=== PATIENT | male | born 1975 | race African-American/Black ===

== ENCOUNTER 2019-10-20 09:57 | Emergency (ER) | payer SELFPAY ==
[~2019-10-20] VITALS: Ht 167.6 cm; Wt 68.0 kg
[2019-10-20] MEDS ORDERED: fentaNYL PF VIAL 100 MCG/2 ML VIAL IV ONE (10:30)
[2019-10-20] MEDS ORDERED: IV NORMAL SALINE 1000ML BAG 1,000 ML IV ONE (10:30)
[2019-10-20] MEDS ORDERED: ONDANSETRON PF 4 MG/2 ML VIAL. IV ONE (10:30)
[2019-10-20] MEDS ORDERED: KETAMINE HCL IN NACL, ISO-OSM 50 MG/5 ML SYRINGE IV ONE (10:30)
--- NOTE | 2019-10-20 10:34 | PHYS DOC ---
General Adult EDM: Chief Complaint: SHOULDER INJURY HPI: HPI: Patient is a 43-year-old otherwise healthy male who presents secondary to a shoulder injury. He states he fell last night landed on his left shoulder and since that time is been unable to move it. He states he has not had any previous shoulder injuries and no dislocations. He denies any other injuries. He states he still able to move and feel his fingers. [] Review of Systems: Review of Systems: Constitutional: Denies fever or chills. [] Eyes: Denies change in visual acuity. [] HENT: Denies nasal congestion or sore throat. [] Respiratory: Denies cough or shortness of breath. [] Cardiovascular: Denies chest pain or edema. [] GI: Denies abdominal pain, nausea, vomiting, bloody stools or diarrhea. [] : Denies dysuria. [] Musculoskeletal: Per HPI [] Integument: Denies rash. [] Neurologic: Denies headache, focal weakness or sensory changes. [] Endocrine: Denies polyuria or polydipsia. [] Lymphatic: Denies swollen glands. [] Psychiatric: Denies depression or anxiety. [] Heart Score: Risk Factors: Risk Factors: DM, Current or recent (<one month) smoker, HTN, HLP, family history of CAD, obesity. Risk Scores: Score 0 - 3: 2.5% MACE over next 6 weeks - Discharge Home Score 4 - 6: 20.3% MACE over next 6 weeks - Admit for Clinical Observation Score 7 - 10: 72.7% MACE over next 6 weeks - Early Invasive Strategies Current Medications: Current Medications Medications (Trade) Dose Ordered Sig/[facility] Start Time Stop Time Status Last Admin Dose Admin Fentanyl Citrate (Fentanyl 2ml Vial) 50 mcg 1X ONCE 10/20/19 10:30 10/20/19 10:31 Ketamine HCl (Ketamine) 66 mg 1X ONCE 10/20/19 10:30 10/20/19 10:31 UNV Ondansetron HCl (Zofran) 4 mg 1X ONCE 10/20/19 10:30 10/20/19 10:31 Sodium Chloride 1,000 ml @ 1,000 mls/hr 1X ONCE 10/20/19 10:30 10/20/19 11:29 Allergies: Allergies: Allergies Coded Allergies Type Severity Reaction Last Updated Verified No Known Drug Allergies 10/20/19 No Physical Exam: PE: Constitutional: Well developed, well nourished, moderate distress, non-toxic appearance. [] HENT: Normocephalic, atraumatic, bilateral external ears normal, oropharynx moist, no oral exudates, nose normal. [] Eyes: PERRLA, EOMI, conjunctiva normal, no discharge. [] Neck: Normal range of motion, no tenderness, supple, no stridor. [] Cardiovascular:Heart rate regular rhythm, no murmur [] Lungs & Thorax: Bilateral breath sounds clear to auscultation [] Abdomen: Bowel sounds normal, soft, no tenderness, no masses, no pulsatile m asses. [] Skin: Warm, dry, no erythema, no rash. [] Back: No tenderness, no CVA tenderness. [] Extremities: Obvious left anterior shoulder dislocation good distal sensation and pulses. [] Neurologic: Alert and oriented X 3, normal motor function, normal sensory function, no focal deficits noted. [] Psychologic: Affect normal, judgement normal, mood normal. [] EKG: EKG: [] Radiology/Procedures: Radiology/Procedures: [STATUS: PRE ERORD. PHYSICIAN: NAGA CASTELLANO DO REASON: left shoulder dislocation PROCEDURE: SHOULDER 2+V LEFT INDICATION: Shoulder pain COMPARISON: None. IMPRESSION: Left shoulder: 2 views obtained. Anterior inferior left shoulder dislocation is identified. Calcified lymph nodes in the left pulmonary hilum which could be secondary to sequela of old granulomatous disease.] Impression: REASON: post reduction PROCEDURE: SHOULDER LEFT 1V INDICATION: Postreduction COMPARISON: Earlier same day IMPRESSION: Left shoulder: Single view obtained. Interval improvement in alignment of previously identified left shoulder dislocation status post reduction. Limited evaluation for fracture secondary to only one view obtained. Course & Med Decision Making: Course & Med Decision Making Pertinent Labs and Imaging studies reviewed. (See chart for details) [Procedure: Left shoulder reduction After adequate procedural sedation gentle axial traction was applied to the left shoulder with a easy reduction after reduction full range of motion was obtained neurovascular he remained intact. Patient tolerated procedure well] Dragon Disclaimer: Dragon Disclaimer: This electronic medical record was generated, in whole or in part, using a voice recognition dictation system. Departure Departure Impression: Primary Impression: Dislocation of left shoulder joint Qualified Codes: S43.005A - Unspecified dislocation of left shoulder joint, initial encounter Disposition: HOME, SELF-CARE Condition: STABLE Referrals: GARDENIA CONWAY MD Follow-up with Dr. Rooney in the next 1 week. Patient Instructions: Shoulder Dislocation, Shoulder Fracture (Proximal Humerus or Glenoid)-SportsMed Scripts Hydrocodone/Apap 5-325 (NORCO 5-325 TABLET) 1 Each Tablet 1 TAB PO PRN Q6HRS PRN for PAIN, #12 TAB 0 Refills Prov: NAGA CASTELLANO DO 10/20/19 Procedural Sedation Proc Sed Indication: [Left shoulder dislocation] Consent: I have discussed with the patient and/or the patient pharmacy sales representative the indication, alternatives, and the possible risks and /or complications of the planned procedure and the anesthesia methods. The patient and/or patient pharmacy sales representative appear to understand and agree to proceed. Pre-Sedation Documentation and Exam: See the H&P Airway Assessment: normal. Prior History of Anesthesia Complications: none. ASA Classification: Class I Sedation/ Anesthesia Plan: Ketamine 1 mg/kg IV Medications Used: see nursing notes. Monitoring and Safety: The patient was placed on a monitoring and evaluation advisor and vital signs, pulse oximetry and level of consciousness were continuously evaluated throughout the procedure. The patient was closely monitored until recovery from the medications was complete and the patient had returned to baseline status. Respiratory therapy was on standby at all times during the procedure. (The following sections must be completed) Post-Sedation Vital Signs: Blood pressure 126/86 pulse 70 Post-Sedation Exam: Anterior deformity has been reduced neurovascularly intact distally a shoulder immobilizer was placed Complications: none. NAGA CASTELLANO DO Oct 20, 2019 10:34
--- NOTE | 2019-10-20 10:36 | RAD ---
INDICATION: Shoulder pain COMPARISON: None. IMPRESSION: Left shoulder: 2 views obtained. Anterior inferior left shoulder dislocation is identified. Calcified lymph nodes in the left pulmonary hilum which could be secondary to sequela of old granulomatous disease. Electronically signed by: Yvan Lala MD (10/20/2019 10:33 AM) [id number]
[2019-10-20 10:50] VITALS: BP 149/69
[2019-10-20] MEDS ORDERED: HYDR-3164 PO (10:57)
--- NOTE | 2019-10-20 11:34 | RAD ---
INDICATION: Postreduction COMPARISON: Earlier same day IMPRESSION: Left shoulder: Single view obtained. Interval improvement in alignment of previously identified left shoulder dislocation status post reduction. Limited evaluation for fracture secondary to only one view obtained. Electronically signed by: Yvan Lala MD (10/20/2019 11:31 AM) [id number]
[2019-10-20 12:02] VITALS: BP 147/85
== END 2019-10-20 12:10 | disposition home or self-care (01) ==
LOC: ER 09:57
DX: S43.085A Other dislocation of left shoulder joint, initial encounter (principal); W18.39XA Other fall on same level, initial encounter; Y93.89 Activity, other specified; Y92.89 Other specified places as the place of occurrence of the external cause; Y99.8 Other external cause status
CPT/HCPCS: 23650; 73020; 73030; 96374; 96375; 99285; J2405; J3010; J7030

== ENCOUNTER 2020-02-06 09:13 | Emergency (ER) | payer SELFPAY ==
[~2020-02-06] VITALS: Ht 175.3 cm; Wt 63.0 kg
[~2020-02-06 09:13] MED LIST: HYDR-3164 PO
[2020-02-06 09:24] VITALS: BP 127/70
--- NOTE | 2020-02-06 10:13 | RAD ---
PROCEDURE: SHOULDER 2+V LEFT CLINICAL INDICATION / HISTORY: Reason: left shoulder pain x 4 months, ran into wall 4 months ago / Spl. Instructions: / History: . TECHNIQUE: AP internal and external rotation views with a Y- view were obtained. COMPARISON: Left shoulder x-rays of 10/20/2019 FINDINGS: No fracture, dislocation or bone destruction is identified. There are moderate degenerative changes at the left AC joint. No calcifications are seen in relation to the rotator cuff insertion. Incidental calcified lymph nodes in the mediastinum and left hilum. IMPRESSION: No fracture or malalignment. Acromioclavicular joint degenerative changes. Consider MRI in further evaluation if clinically warranted. Electronically signed by: Paul Issa MD (02/06/2020 10:10 AM) [id number]
[2020-02-06] MEDS ORDERED: KETOROLAC 60 MG/2 ML VIAL. IM ONE (10:15)
[2020-02-06] MEDS ORDERED: DEXAMETHASONE SOD PHOS 4 MG/ML VIAL PO ONE (10:15)
--- NOTE | 2020-02-06 10:18 | PHYS DOC ---
Past Medical History Past Medical History: No Pertinent History Past Surgical History: No Surgical History Smoking Status: Current Every Day Smoker Alcohol Use: Heavy General Adult EDM: Chief Complaint: SHOULDER INJURY HPI: HPI: Patient is a 44-year-old male who presents to the emergency room complaining of left shoulder pain. Patient is a very poor historian. When asked why he is here in the emergency room he states that is when I am trying to find out. He states that he hurt his shoulder in September but has no idea what they did for him at that time. He believes he was in a sling for period of time. He tried to follow-up with Ortho but because he does not have insurance he was unable to. He has not tried anything for the pain. When asked about how often he is having the pain, what the pain is like, what makes the pain worse or better patient just shrugs and is unable to provide a history. He is able to fully move the shoulder. Review of Systems: Review of Systems: Negative other than noted Heart Score: Risk Factors: Risk Factors: DM, Current or recent (<one month) smoker, HTN, HLP, family history of CAD, obesity. Risk Scores: Score 0 - 3: 2.5% MACE over next 6 weeks - Discharge Home Score 4 - 6: 20.3% MACE over next 6 weeks - Admit for Clinical Observation Score 7 - 10: 72.7% MACE over next 6 weeks - Early Invasive Strategies Allergies: Allergies: Allergies Coded Allergies Type Severity Reaction Last Updated Verified No Known Drug Allergies 10/20/19 No Physical Exam: PE: General: Awake, alert, NAD. Well Nourished, well hydrated. Cooperative HEENT: Atraumatic, EOMI, PERRL, airway patent, moist oral mucosa Neck: Supple, trachea midline Respiratory: CTA bilaterally, normal effort, no wheezing/crackles CV: RRR, no murmur, cap refill <2 GI: Soft, nondistended, nontender, no masses MSK: No obvious deformities. L shoulder: FROM, no obvious deformities, diffiuse tenderness Skin: Warm, dry, intact Neuro: A&O x3, speech NL, sensory and motor grossly intact, no focal deficits Psych: Normal affect, normal mood, not suicidal or homicidal Current Patient Data: Vital Signs: Vital Signs Date Time Temp Pulse Resp B/P (MAP) Pulse Ox O2 Delivery O2 Flow Rate FiO2 02/06/20 09:24 96.8 75 18 127/70 (89) 97 Room Air 96.8 EKG: EKG: [] Radiology/Procedures: Radiology/Procedures: [] Course & Med Decision Making: Course & Med Decision Making Pertinent Labs and Imaging studies reviewed. (See chart for details) Patient is a 44-year-old male who presents to the emergency room complaining of chronic left shoulder pain. It is unclear exactly what his shoulder pain is from. X-ray is normal at this time. I have recommended that he follow-up with orthopedic surgery at [facility] or as he does not have insurance. When asked where he would like to follow-up patient states I will decide when I decide. Patient's test results and vitals while in the ED were fully reviewed and discussed with the patient. Patient is stable and at this time does not need admission to the hospital. We have discussed strict return precautions and the i mportance of following up with their Primary Care Physician. Patient stated understanding and was given an opportunity to ask any questions. Patient is in agreement with plan. John Disclaimer: John Disclaimer: This electronic medical record was generated, in whole or in part, using a voice recognition dictation system. Departure Departure Impression: Primary Impression: Chronic shoulder pain Disposition: HOME, SELF-CARE Condition: STABLE Referrals: NO PCP (PCP) Follow up with orthopedic surgery at [facility] or Patient Instructions: Shoulder Exercises, Generic, SportsMed, Shoulder Pain Justicifation of Admission Dx: Justifications for Admission: Justification of Admission Dx: No BURT HILTON MD Feb 06, 2020 10:18
== END 2020-02-06 10:36 | disposition home or self-care (01) ==
LOC: ER 09:13
DX: G89.29 Other chronic pain (principal); M25.512 Pain in left shoulder; F17.200 Nicotine dependence, unspecified, uncomplicated; F10.10 Alcohol abuse, uncomplicated
CPT/HCPCS: 73030; 96372; 99283; J1100; J1885

== ENCOUNTER 2020-02-19 19:06 | Emergency (ER) | payer SELFPAY | END 2020-02-19 20:26 | disposition left against medical advice (07) | LOC: ER 19:06 | DX: N50.819 Testicular pain, unspecified (principal); N50.89 Other specified disorders of the male genital organs; Z53.21 Procedure and treatment not carried out due to patient leaving prior to being seen by health care provider ==